=== PATIENT | female | born 1990 | race Two or more races ===

== ENCOUNTER 2023-04-06 02:45 | Inpatient (IN) ==
[2023-04-06] MEDS ORDERED: Buffered Lidocaine 1% SYRIN 1 ml INTRADERM ONE (04:04)
[2023-04-06] MEDS ORDERED: Lidocaine 1% VIAL 10 MG/ML 30 ML VIAL INJ PRN (04:04)
[2023-04-06] MEDS ORDERED: Lactated Ringers 1000 ml BAG 1,000 ML IV ONE (04:04)
[2023-04-06] MEDS ORDERED: Oxytocin in LR 20,000 MILLI.UNIT/1,000 ML BAG IV SCH (04:10)
[2023-04-06] MEDS ORDERED: Calcium Carb (TUMS) 500 mg CHEW TAB PO PRN (04:14)
[2023-04-06] MEDS ORDERED: Ondansetron 4 mg VIAL 2 MG/ML 2 ml VIAL IV PRN (04:14)
[2023-04-06] MEDS ORDERED: Lidocaine 2% JELLY 6 ML Topical TOPICAL ONE (04:14)
[2023-04-06] MEDS ORDERED: Lactated Ringers 1000 ml BAG 1,000 ML IV SCH (05:00)
[2023-04-06 05:06] LABS: Urine Benzodiazepine Screen None Detected (None Detect); Urine Cannabinoids Screen None Detected (None Detect); Urine Opiates Screen None Detected (None Detect)
[2023-04-06] MEDS ORDERED: Dibucaine 1% OINT 28.35 GM TUBE PR PRN (09:26)
[2023-04-06] MEDS ORDERED: Witch Hazel PAD JAR TOPICAL PRN (09:26)
[2023-04-06] MEDS ORDERED: Glycerin ADULT 2.4 gm SUPP PR PRN (09:26)
[2023-04-06] MEDS: Benzocaine/Menthol LOZ MT PRN ×2 (13:49→19:59)
[2023-04-07 07:04] LABS: ABS Eosinophils 0.1 10^3/uL (0.0-0.5); ABS Lymphocytes 1.9 10^3/uL (1.0-4.8); ABS Monocytes 0.7 10^3/uL (0.0-0.9); ABS Neutrophils 5.8 10^3/uL (1.5-7.6); Eosinophil % 0.9 %; Hematocrit 35.8 % (35-45); Lymphocyte % 22.5 %; Mean Corpuscular Hemoglobin 30.2 pg (27-33); Mean Corpuscular Hgb Conc 33.5 g/dL (31-36); Mean Corpuscular Volume 90.2 fL (80-97); Mean Platelet Volume 9.2 fL (7.5-11.2); Platelet Count 230 10^3/uL (150-450); Red Blood Count 3.97 10^6/uL (3.63-4.92); Red Cell Distribution Width 14.5 % (12-17); White Blood Count 8.7 10^3/uL (3.8-11.8)
[2023-04-07 09:11] VITALS: BP 102/71
== END 2023-04-07 14:15 | disposition home or self-care (01) | DRG 560 ==
LOC: MCHOBOUT 02:45 → MCHOB 03:32
PROVIDERS: ADMIT Advanced Practice Midwife; ATTEND Advanced Practice Midwife